=== PATIENT | male | born 1985 | race African-American/Black ===

== ENCOUNTER 2016-09-13 11:41 | Emergency (ER) | payer MEDICARE, MEDICAID ==
[~2016-09-13] VITALS: Ht 177.8 cm; Wt 68.0 kg
[2016-09-13 11:52] VITALS: BP 118/82
== END 2016-09-13 12:57 | disposition home or self-care (01) ==
LOC: ER 12:01
DX: Z00.8 Encounter for other general examination (principal); F16.10 Hallucinogen abuse, uncomplicated; F31.9 Bipolar disorder, unspecified; F17.200 Nicotine dependence, unspecified, uncomplicated; Z90.89 Acquired absence of other organs
CPT/HCPCS: 99281

== ENCOUNTER 2017-02-15 19:48 | Emergency (ER) | payer MEDICARE, MEDICAID ==
[~2017-02-15] VITALS: Ht 177.8 cm; Wt 73.0 kg
[2017-02-15 23:13] LABS: BASOPHILS % 0.8 % (0.0-2.0); EOSINOPHILS % 0.9 % (0.0-5.0); HEMATOCRIT. 39.7 % (42.0-52.0); HEMOGLOBIN. 13.7 g/dL (14.0-18.0); MEAN CORPUSCULAR VOLUME 92.5 fL (80.0-94.0); MEAN PLATELET VOLUME 8.9 fl (7.4-10.4); MONOCYTES % 11.6 % (2.0-8.0); NEUTROPHILS % 62.7 % (40.0-76.0); PLATELET 293 x1000/uL (130-400); RED CELL DISTRIBUTION WIDTH 13.1 % (11.6-14.6)
[2017-02-15 23:19] LABS: CHLORIDE 106 mEq/L (98-107)
[2017-02-15 23:23] LABS: CARBON DIOXIDE 33 mEq/L (21-32); ETHANOL BLOOD < 10 mg/dL
[2017-02-15 23:34] LABS: CLARITY URINE CLEAR (CLEAR); COLOR URINE YELLOW (YELLOW); KETONES URINE NEGATIVE (NEGATIVE); LEUKOCYTE ESTERASE URINE NEGATIVE (NEGATIVE); NITRITE URINE NEGATIVE (NEGATIVE); OCCULT BLOOD URINE NEGATIVE (NEGATIVE); PH URINE >=9.0 (4.5-8.0); PROTEIN URINE TRACE (NEGATIVE); SPECIFIC GRAVITY URINE 1.029 (1.005-1.030)
[2017-02-16] LABS: *AMPHETAMINES SCREEN URINE NEGATIVE (NEGATIVE); *BARBITURATES SCREEN URINE NEGATIVE (NEGATIVE); *BENZODIAZEPINES SCREEN URINE NEGATIVE (NEGATIVE); *COCAINE SCREEN URINE NEGATIVE (NEGATIVE); CANNABINOID URINE SCREEN NEGATIVE (NEGATIVE); METHADONE URINE SCREEN NEGATIVE (NEGATIVE); OPIATES URINE SCREEN NEGATIVE (NEGATIVE); PHENCYCLIDINE URINE SCREEN NEGATIVE (NEGATIVE)
[2017-02-16 16:00] VITALS: BP 120/79
== END 2017-02-16 16:37 | disposition home or self-care (01) ==
LOC: ER 20:37
DX: Z00.8 Encounter for other general examination (principal); F31.9 Bipolar disorder, unspecified; F19.10 Other psychoactive substance abuse, uncomplicated; Z59.0 Homelessness; Z90.89 Acquired absence of other organs
CPT/HCPCS: 36415; 80048; 80305; 81001; 82962; 85025; 99284; G0482

== ENCOUNTER 2017-02-18 18:11 | Emergency (ER) | payer MEDICARE, MEDICAID ==
[~2017-02-18] VITALS: Ht 177.8 cm; Wt 80.0 kg
[2017-02-19 02:57] LABS: BASOPHILS % 0.6 % (0.0-2.0); EOSINOPHILS % 1.5 % (0.0-5.0); HEMATOCRIT. 40.3 % (42.0-52.0); HEMOGLOBIN. 14.1 g/dL (14.0-18.0); LYMPHOCYTES % 27.6 % (20.0-50.0); MEAN CORPUSCULAR HEMOGLOBIN 32.2 pg (28.0-32.0); MEAN PLATELET VOLUME 8.9 fl (7.4-10.4); MONOCYTES % 7.9 % (2.0-8.0); NEUTROPHILS % 62.4 % (40.0-76.0); PLATELET 259 x1000/uL (130-400); RED BLOOD CELL COUNT 4.38 mill/uL (4.7-6.1)
[2017-02-19 03:13] LABS: CARBON DIOXIDE 28 mEq/L (21-32); CHLORIDE 105 mEq/L (98-107); ETHANOL BLOOD < 10 mg/dL
[2017-02-19 03:28] LABS: *AMPHETAMINES SCREEN URINE NEGATIVE (NEGATIVE); *BARBITURATES SCREEN URINE NEGATIVE (NEGATIVE); *BENZODIAZEPINES SCREEN URINE NEGATIVE (NEGATIVE); *COCAINE SCREEN URINE NEGATIVE (NEGATIVE); CANNABINOID URINE SCREEN PRESUMTIVE POSITIVE (NEGATIVE); METHADONE URINE SCREEN NEGATIVE (NEGATIVE); OPIATES URINE SCREEN NEGATIVE (NEGATIVE); PHENCYCLIDINE URINE SCREEN NEGATIVE (NEGATIVE)
[2017-02-19 04:45] VITALS: BP 114/69
== END 2017-02-19 05:45 | disposition home or self-care (01) ==
LOC: ER 18:22
DX: Z76.5 Malingerer [conscious simulation] (principal); R53.83 Other fatigue; F12.90 Cannabis use, unspecified, uncomplicated; F16.10 Hallucinogen abuse, uncomplicated; F31.9 Bipolar disorder, unspecified
CPT/HCPCS: 36415; 70450; 80048; 80305; 80307; 80329; 82962; 85025; 99285; G0482

== ENCOUNTER 2019-07-31 03:40 | Emergency (ER) | payer MEDICARE, OTHER ==
[~2019-07-31] VITALS: Ht 175.3 cm; Wt 71.1 kg
[2019-07-31 09:00] VITALS: BP 128/83
== END 2019-07-31 09:20 | disposition home or self-care (01) ==
LOC: ER 03:40
DX: R44.0 Auditory hallucinations (principal); F16.10 Hallucinogen abuse, uncomplicated; Z79.899 Other long term (current) drug therapy; Z59.0 Homelessness
CPT/HCPCS: 99281

== ENCOUNTER 2019-10-03 11:35 | Emergency (ER) | payer MEDICARE, MEDICAID, OTHER ==
[~2019-10-03] VITALS: Ht 180.3 cm; Wt 84.0 kg
[2019-10-03] MEDS ORDERED: LORAZEPAM 2MG/ML CPJ IV STA (12:28)
[2019-10-03] MEDS ORDERED: SODIUM CHLORIDE 0.9% 1,000 ML IV ONE (12:28)
[2019-10-03 12:55] LABS: BASOPHILS % 0.9 % (0.0-2.0); EOSINOPHILS % 0.7 % (0.0-5.0); HEMATOCRIT. 35.7 % (42.0-52.0); HEMOGLOBIN. 12.5 g/dL (14.0-18.0); LYMPHOCYTES % 27.1 % (20.0-50.0); MEAN CORPUSCULAR HEMOGLOBIN 31.7 pg (28.0-32.0); MEAN CORPUSCULAR VOLUME 90.7 fL (80.0-94.0); MEAN PLATELET VOLUME 8.3 fl (7.4-10.4); MONOCYTES % 12.3 % (2.0-8.0); PLATELET 267 x1000/uL (130-400); RED BLOOD CELL COUNT 3.93 mill/uL (4.7-6.1); RED CELL DISTRIBUTION WIDTH 12.8 % (11.6-14.6)
[2019-10-03 13:03] LABS: CHLORIDE 111 mEq/L (98-107)
[2019-10-03 13:08] LABS: ETHANOL BLOOD < 10 mg/dL
[2019-10-03 15:50] LABS: CLARITY URINE CLEAR (CLEAR); COLOR URINE YELLOW (YELLOW); KETONES URINE TRACE (NEGATIVE); LEUKOCYTE ESTERASE URINE NEGATIVE (NEGATIVE); NITRITE URINE NEGATIVE (NEGATIVE); OCCULT BLOOD URINE NEGATIVE (NEGATIVE); PH URINE 6.5 (4.5-8.0); PROTEIN URINE NEGATIVE (NEGATIVE); SPECIFIC GRAVITY URINE 1.029 (1.005-1.030)
[2019-10-03 16:03] LABS: *AMPHETAMINES SCREEN URINE PRESUMTIVE POSITIVE (NEGATIVE); *BARBITURATES SCREEN URINE NEGATIVE (NEGATIVE); *BENZODIAZEPINES SCREEN URINE NEGATIVE (NEGATIVE)
[2019-10-03 16:04] LABS: *COCAINE SCREEN URINE PRESUMTIVE POSITIVE (NEGATIVE); CANNABINOID URINE SCREEN NEGATIVE (NEGATIVE); METHADONE URINE SCREEN NEGATIVE (NEGATIVE); OPIATES URINE SCREEN NEGATIVE (NEGATIVE); PHENCYCLIDINE URINE SCREEN NEGATIVE (NEGATIVE)
[2019-10-04] MEDS ORDERED: OLANZAPINE 10 MG/VIAL IM ONE (00:30)
[2019-10-05 08:43] VITALS: BP 120/70
== END 2019-10-05 09:00 | disposition home or self-care (01) ==
LOC: ER 11:46
DX: F19.10 Other psychoactive substance abuse, uncomplicated (principal); Z78.1 Physical restraint status
CPT/HCPCS: 36415; 70450; 80053; 80305; 80307; 80320; 80329; 81003; 85025; 93005; 96372; 99285; J3490; J7030; G0480

== ENCOUNTER 2019-12-06 10:59 | Emergency (ER) | payer MEDICARE, MEDICAID, OTHER ==
[~2019-12-06] VITALS: Ht 185.4 cm; Wt 82.0 kg
[2019-12-06] MEDS ORDERED: LORAZEPAM 2MG/ML CPJ IV STA (11:20)
[2019-12-06] MEDS ORDERED: SODIUM CHLORIDE 0.9% 1,000 ML IV ONE (11:20)
[2019-12-06 11:43] LABS: BASOPHILS % 0.7 % (0.0-2.0); EOSINOPHILS % 0.1 % (0.0-5.0); HEMATOCRIT. 45.2 % (42.0-52.0); HEMOGLOBIN. 15.3 g/dL (14.0-18.0); LYMPHOCYTES % 14.3 % (20.0-50.0); MEAN CORPUSCULAR HEMOGLOBIN 31.4 pg (28.0-32.0); MEAN CORPUSCULAR VOLUME 92.3 fL (80.0-94.0); MEAN PLATELET VOLUME 9.1 fl (7.4-10.4); MONOCYTES % 12.8 % (2.0-8.0); NEUTROPHILS % 72.1 % (40.0-76.0); PLATELET 243 x1000/uL (130-400); RED BLOOD CELL COUNT 4.89 mill/uL (4.7-6.1); RED CELL DISTRIBUTION WIDTH 13.5 % (11.6-14.6)
[2019-12-06 11:50] LABS: CHLORIDE 104 mEq/L (98-107)
[2019-12-06 11:55] LABS: ETHANOL BLOOD < 10 mg/dL
[2019-12-06 12:09] LABS: *AMPHETAMINES SCREEN URINE PRESUMTIVE POSITIVE (NEGATIVE); *BARBITURATES SCREEN URINE NEGATIVE (NEGATIVE); *BENZODIAZEPINES SCREEN URINE NEGATIVE (NEGATIVE); *COCAINE SCREEN URINE NEGATIVE (NEGATIVE); METHADONE URINE SCREEN NEGATIVE (NEGATIVE)
[2019-12-06 12:10] LABS: CANNABINOID URINE SCREEN NEGATIVE (NEGATIVE); OPIATES URINE SCREEN NEGATIVE (NEGATIVE); PHENCYCLIDINE URINE SCREEN NEGATIVE (NEGATIVE)
[2019-12-06] MEDS ORDERED: POTASSIUM CHLORIDE 20MEQ TABLET SR PO NR (12:15)
[2019-12-06 20:44] VITALS: BP 129/79
== END 2019-12-06 20:45 | disposition home or self-care (01) ==
LOC: ER 11:11
DX: R41.82 Altered mental status, unspecified (principal)
CPT/HCPCS: 36415; 80053; 80305; 80320; 85025; 96361; 96374; 99285; J2060; J7030; G0480

== ENCOUNTER 2019-12-07 11:06 | Emergency (ER) | payer MEDICARE, MEDICAID ==
[~2019-12-07] VITALS: Ht 172.7 cm; Wt 82.0 kg
[2019-12-07] MEDS ORDERED: LORAZEPAM 2MG/ML CPJ IV STA (11:26)
[2019-12-07] MEDS ORDERED: SODIUM CHLORIDE 0.9% 1,000 ML IV ONE (11:26)
[2019-12-07 12:01] LABS: BASOPHILS % 0.9 % (0.0-2.0); EOSINOPHILS % 0.4 % (0.0-5.0); HEMOGLOBIN. 15.1 g/dL (14.0-18.0); LYMPHOCYTES % 24.1 % (20.0-50.0); MEAN CORPUSCULAR HEMOGLOBIN 32.4 pg (28.0-32.0); MEAN CORPUSCULAR VOLUME 92.7 fL (80.0-94.0); MEAN PLATELET VOLUME 8.8 fl (7.4-10.4); MONOCYTES % 12.2 % (2.0-8.0); NEUTROPHILS % 62.4 % (40.0-76.0); PLATELET 235 x1000/uL (130-400); RED BLOOD CELL COUNT 4.64 mill/uL (4.7-6.1); RED CELL DISTRIBUTION WIDTH 13.1 % (11.6-14.6)
[2019-12-07 13:03] LABS: CHLORIDE 109 mEq/L (98-107)
[2019-12-07 13:09] LABS: ETHANOL BLOOD < 10 mg/dL
[2019-12-07 13:20] LABS: CREATINE KINASE 353 IU/L (39-308)
[2019-12-07 16:17] LABS: CLARITY URINE CLEAR (CLEAR); COLOR URINE YELLOW (YELLOW); KETONES URINE 1+ (NEGATIVE); LEUKOCYTE ESTERASE URINE NEGATIVE (NEGATIVE); NITRITE URINE NEGATIVE (NEGATIVE); OCCULT BLOOD URINE NEGATIVE (NEGATIVE); PROTEIN URINE TRACE (NEGATIVE); SPECIFIC GRAVITY URINE 1.033 (1.005-1.030)
[2019-12-07 16:31] LABS: CANNABINOID URINE SCREEN NEGATIVE (NEGATIVE); METHADONE URINE SCREEN NEGATIVE (NEGATIVE); OPIATES URINE SCREEN NEGATIVE (NEGATIVE); PHENCYCLIDINE URINE SCREEN NEGATIVE (NEGATIVE)
[2019-12-07 16:32] LABS: *AMPHETAMINES SCREEN URINE PRESUMTIVE POSITIVE (NEGATIVE); *BARBITURATES SCREEN URINE NEGATIVE (NEGATIVE); *BENZODIAZEPINES SCREEN URINE NEGATIVE (NEGATIVE); *COCAINE SCREEN URINE NEGATIVE (NEGATIVE)
[2019-12-07] MEDS ORDERED: HALOPERIDOL LACTATE 5MG/ML VIAL IM ONE (20:00)
[2019-12-07] MEDS ORDERED: LORAZEPAM 2MG/ML CPJ IV ONE (20:00)
[2019-12-08 03:28] VITALS: BP 125/63
== END 2019-12-08 04:53 | disposition home or self-care (01) ==
LOC: EDUNIT# 11:06 → ER 11:06 → EDBD 11:06 → ER 12-08 04:53
DX: R41.82 Altered mental status, unspecified (principal); R00.0 Tachycardia, unspecified; F15.10 Other stimulant abuse, uncomplicated
CPT/HCPCS: 36415; 70450; 71045; 80053; 80305; 80307; 80320; 80329; 81003; 82550; 83880; 84484; 85025; 93005; 96361; 96372; 96374; 96376; 99285; J1630; J2060; J7030; G0480

== ENCOUNTER 2020-08-12 02:33 | Emergency (ER) | payer MEDICARE, MEDICAID ==
[~2020-08-12] VITALS: Ht 177.8 cm; Wt 67.9 kg
[2020-08-12 03:57] LABS: EOSINOPHILS % 2.2 % (0.0-5.0); HEMATOCRIT. 39.6 % (42.0-52.0); HEMOGLOBIN. 13.8 g/dL (14.0-18.0); LYMPHOCYTES % 33.1 % (20.0-50.0); MEAN CORPUSCULAR HEMOGLOBIN 31.7 pg (28.0-32.0); MEAN CORPUSCULAR VOLUME 90.6 fL (80.0-94.0); MEAN PLATELET VOLUME 8.8 fl (7.4-10.4); MONOCYTES % 8.8 % (2.0-8.0); NEUTROPHILS % 54.9 % (40.0-76.0); PLATELET 213 x1000/uL (130-400); RED BLOOD CELL COUNT 4.36 mill/uL (4.7-6.1); RED CELL DISTRIBUTION WIDTH 12.3 % (11.6-14.6)
[2020-08-12 05:10] LABS: CHLORIDE 107 mEq/L (98-107)
[2020-08-12 05:14] LABS: ETHANOL BLOOD < 10 mg/dL
[2020-08-12 06:24] LABS: CLARITY URINE CLEAR (CLEAR); COLOR URINE YELLOW (YELLOW); KETONES URINE NEGATIVE (NEGATIVE); LEUKOCYTE ESTERASE URINE NEGATIVE (NEGATIVE); NITRITE URINE NEGATIVE (NEGATIVE); OCCULT BLOOD URINE NEGATIVE (NEGATIVE); PROTEIN URINE NEGATIVE (NEGATIVE); SPECIFIC GRAVITY URINE 1.024 (1.005-1.030)
[2020-08-12 06:42] LABS: *AMPHETAMINES SCREEN URINE PRESUMTIVE POSITIVE (NEGATIVE)
[2020-08-12 06:43] LABS: *BENZODIAZEPINES SCREEN URINE NEGATIVE (NEGATIVE); *COCAINE SCREEN URINE NEGATIVE (NEGATIVE); METHADONE URINE SCREEN NEGATIVE (NEGATIVE); OPIATES URINE SCREEN NEGATIVE (NEGATIVE); PHENCYCLIDINE URINE SCREEN NEGATIVE (NEGATIVE)
[2020-08-12 06:45] LABS: *BARBITURATES SCREEN URINE NEGATIVE (NEGATIVE); CANNABINOID URINE SCREEN NEGATIVE (NEGATIVE)
[2020-08-12 15:49] VITALS: BP 110/67
== END 2020-08-12 15:50 | disposition home or self-care (01) ==
LOC: ER 02:33
DX: F15.10 Other stimulant abuse, uncomplicated (principal); F22 Delusional disorders; Z20.822 Contact with and (suspected) exposure to COVID-19; Z86.59 Personal history of other mental and behavioral disorders
CPT/HCPCS: 36415; 80053; 80305; 80320; 81003; 85025; 87426; 99285; G0480

== ENCOUNTER 2020-10-05 04:15 | Emergency (ER) | payer MEDICARE, MEDICAID ==
[~2020-10-05] VITALS: Ht 175.3 cm; Wt 72.0 kg
[2020-10-05 04:30] VITALS: BP 139/100
[2020-10-05] MEDS ORDERED: ACETAMINOPHEN 325MG TABLET PO ONE (05:00)
== END 2020-10-05 05:37 | disposition home or self-care (01) ==
LOC: ER 04:15
DX: R51.9 Headache, unspecified (principal); Z59.0 Homelessness; F20.9 Schizophrenia, unspecified; F31.9 Bipolar disorder, unspecified
CPT/HCPCS: 99281

== ENCOUNTER 2020-10-23 06:00 | Emergency (ER) | payer MEDICARE, MEDICAID ==
[~2020-10-23] VITALS: Ht 180.3 cm; Wt 80.0 kg
[2020-10-23] MEDS ORDERED: LORAZEPAM 2MG/ML CPJ IM ONE (08:30)
[2020-10-23] MEDS ORDERED: OLANZAPINE 10 MG/VIAL IM ONE (08:30)
[2020-10-23 08:45] LABS: BASOPHILS % 0.8 % (0.0-2.0); HEMOGLOBIN. 12.4 g/dL (14.0-18.0); LYMPHOCYTES % 20.6 % (20.0-50.0); MEAN CORPUSCULAR HEMOGLOBIN 31.5 pg (28.0-32.0); MEAN CORPUSCULAR VOLUME 93.7 fL (80.0-94.0); MEAN PLATELET VOLUME 9.3 fl (7.4-10.4); MONOCYTES % 8.6 % (2.0-8.0); PLATELET 222 x1000/uL (130-400); RED BLOOD CELL COUNT 3.95 mill/uL (4.7-6.1)
[2020-10-23 08:49] LABS: CHLORIDE 112 mEq/L (98-107)
[2020-10-23 08:53] LABS: ETHANOL BLOOD < 10 mg/dL
[2020-10-23 10:54] LABS: CLARITY URINE CLEAR (CLEAR); COLOR URINE YELLOW (YELLOW); KETONES URINE NEGATIVE (NEGATIVE); LEUKOCYTE ESTERASE URINE NEGATIVE (NEGATIVE); NITRITE URINE NEGATIVE (NEGATIVE); OCCULT BLOOD URINE NEGATIVE (NEGATIVE); PH URINE 5.5 (4.5-8.0); PROTEIN URINE NEGATIVE (NEGATIVE); SPECIFIC GRAVITY URINE 1.029 (1.005-1.030)
[2020-10-23 11:11] LABS: *AMPHETAMINES SCREEN URINE NEGATIVE (NEGATIVE)
[2020-10-23 11:12] LABS: *BARBITURATES SCREEN URINE NEGATIVE (NEGATIVE); *BENZODIAZEPINES SCREEN URINE NEGATIVE (NEGATIVE); *COCAINE SCREEN URINE PRESUMTIVE POSITIVE (NEGATIVE); METHADONE URINE SCREEN NEGATIVE (NEGATIVE); OPIATES URINE SCREEN NEGATIVE (NEGATIVE); PHENCYCLIDINE URINE SCREEN PRESUMTIVE POSITIVE (NEGATIVE)
[2020-10-23 11:13] LABS: CANNABINOID URINE SCREEN PRESUMTIVE POSITIVE (NEGATIVE)
[2020-10-24] MEDS ORDERED: OLANZAPINE 10MG TABLET PO SCH (03:30)
[2020-10-24] MEDS ORDERED: ZIPRASIDONE MESYLATE 20MG/VIAL IM ONE (04:00)
[2020-10-24 06:16] VITALS: BP 120/76
== END 2020-10-24 06:19 | disposition home or self-care (01) ==
LOC: ER 06:00
DX: F23 Brief psychotic disorder (principal); R45.850 Homicidal ideations; F14.10 Cocaine abuse, uncomplicated; F12.10 Cannabis abuse, uncomplicated; F16.10 Hallucinogen abuse, uncomplicated; F15.10 Other stimulant abuse, uncomplicated; F31.9 Bipolar disorder, unspecified; Z20.822 Contact with and (suspected) exposure to COVID-19
CPT/HCPCS: 36415; 80053; 80305; 80307; 80320; 80329; 81003; 85025; 96372; 99285; C9803; J2060; J3486; J3490; U0003; U0005; G0480

== ENCOUNTER 2020-11-01 09:14 | Emergency (ER) | payer MEDICARE, MEDICAID ==
[~2020-11-01] VITALS: Ht 180.3 cm; Wt 90.0 kg
[2020-11-01 09:25] VITALS: BP 115/67
== END 2020-11-01 12:25 | disposition left against medical advice (07) ==
LOC: ER 09:28
DX: G89.29 Other chronic pain (principal); M25.552 Pain in left hip; F15.10 Other stimulant abuse, uncomplicated; Z86.59 Personal history of other mental and behavioral disorders
CPT/HCPCS: 99283

== ENCOUNTER 2020-11-02 16:43 | Emergency (ER) | payer MEDICARE, MEDICAID ==
[~2020-11-02] VITALS: Ht 177.8 cm; Wt 86.0 kg
[2020-11-02] MEDS ORDERED: KETOROLAC 60MG/2ML VIAL IM ONE (18:45)
[2020-11-02 20:49] VITALS: BP 120/65
== END 2020-11-02 20:50 | disposition home or self-care (01) ==
LOC: ER 17:20
DX: M54.5 Low back pain (principal); M25.551 Pain in right hip; G89.29 Other chronic pain; F31.9 Bipolar disorder, unspecified; F20.9 Schizophrenia, unspecified; Z98.890 Other specified postprocedural states
CPT/HCPCS: 96372; 99283; J1885

== ENCOUNTER 2020-11-08 06:19 | Emergency (ER) | payer MEDICARE, MEDICAID ==
[~2020-11-08] VITALS: Ht 177.8 cm; Wt 91.0 kg
[2020-11-08] MEDS ORDERED: SODIUM CHLORIDE 0.9% 1,000 ML IV ONE (07:00)
[2020-11-08 07:35] LABS: CHLORIDE 105 mEq/L (98-107)
[2020-11-08 07:38] LABS: BASOPHILS % 0.4 % (0.0-2.0); EOSINOPHILS % 0.1 % (0.0-5.0); HEMATOCRIT. 43.3 % (42.0-52.0); HEMOGLOBIN. 14.7 g/dL (14.0-18.0); LYMPHOCYTES % 10.3 % (20.0-50.0); MEAN CORPUSCULAR HEMOGLOBIN 31.7 pg (28.0-32.0); MEAN CORPUSCULAR VOLUME 93.5 fL (80.0-94.0); MEAN PLATELET VOLUME 9.3 fl (7.4-10.4); MONOCYTES % 8.7 % (2.0-8.0); NEUTROPHILS % 80.5 % (40.0-76.0); PLATELET 234 x1000/uL (130-400); RED BLOOD CELL COUNT 4.63 mill/uL (4.7-6.1); RED CELL DISTRIBUTION WIDTH 13.7 % (11.6-14.6)
[2020-11-08 07:40] LABS: CLARITY URINE CLEAR (CLEAR); COLOR URINE YELLOW (YELLOW); ETHANOL BLOOD < 10 mg/dL; KETONES URINE TRACE (NEGATIVE); LEUKOCYTE ESTERASE URINE NEGATIVE (NEGATIVE); NITRITE URINE NEGATIVE (NEGATIVE); OCCULT BLOOD URINE NEGATIVE (NEGATIVE); PH URINE 5.5 (4.5-8.0); PROTEIN URINE NEGATIVE (NEGATIVE); SPECIFIC GRAVITY URINE 1.036 (1.005-1.030)
[2020-11-08 07:48] LABS: *AMPHETAMINES SCREEN URINE PRESUMTIVE POSITIVE (NEGATIVE); *BARBITURATES SCREEN URINE NEGATIVE (NEGATIVE); *BENZODIAZEPINES SCREEN URINE NEGATIVE (NEGATIVE); *COCAINE SCREEN URINE PRESUMTIVE POSITIVE (NEGATIVE); METHADONE URINE SCREEN NEGATIVE (NEGATIVE); OPIATES URINE SCREEN NEGATIVE (NEGATIVE); PHENCYCLIDINE URINE SCREEN NEGATIVE (NEGATIVE)
[2020-11-08 07:50] LABS: CANNABINOID URINE SCREEN NEGATIVE (NEGATIVE)
[2020-11-08 13:45] VITALS: BP 122/78
== END 2020-11-08 13:56 | disposition home or self-care (01) ==
LOC: ER 06:49
DX: F15.10 Other stimulant abuse, uncomplicated (principal); F14.129 Cocaine abuse with intoxication, unspecified; F19.10 Other psychoactive substance abuse, uncomplicated; R51.9 Headache, unspecified; Z20.822 Contact with and (suspected) exposure to COVID-19; Z86.59 Personal history of other mental and behavioral disorders
CPT/HCPCS: 70450; 71045; 80053; 80305; 80307; 80320; 81003; 82140; 85025; 93005; 99285; J7030; U0003; G0480

== ENCOUNTER 2020-11-12 20:16 | Emergency (ER) | payer MEDICARE, MEDICAID ==
[~2020-11-12] VITALS: Ht 177.8 cm; Wt 82.0 kg
[2020-11-12 22:35] VITALS: BP 137/85
[2020-11-12] MEDS ORDERED: NALO4SPR BOTHNSTRLS (22:51)
== END 2020-11-12 23:27 | disposition home or self-care (01) ==
LOC: ER 20:16
DX: T40.5X1A Poisoning by cocaine, accidental (unintentional), initial encounter (principal); Y92.9 Unspecified place or not applicable; F31.9 Bipolar disorder, unspecified; F20.9 Schizophrenia, unspecified
CPT/HCPCS: 99283

== ENCOUNTER 2020-11-22 15:47 | Emergency (ER) | payer MEDICARE, MEDICAID ==
[~2020-11-22] VITALS: Ht 182.9 cm; Wt 77.0 kg
[~2020-11-22 15:47] MED LIST: NALO4SPR BOTHNSTRLS
[2020-11-22 17:07] LABS: BASOPHILS % 0.7 % (0.0-2.0); EOSINOPHILS % 0.4 % (0.0-5.0); HEMATOCRIT. 40.9 % (42.0-52.0); HEMOGLOBIN. 14.6 g/dL (14.0-18.0); LYMPHOCYTES % 15.5 % (20.0-50.0); MEAN CORPUSCULAR HEMOGLOBIN 32.7 pg (28.0-32.0); MEAN PLATELET VOLUME 8.6 fl (7.4-10.4); MONOCYTES % 5.9 % (2.0-8.0); NEUTROPHILS % 77.5 % (40.0-76.0); PLATELET 287 x1000/uL (130-400); RED BLOOD CELL COUNT 4.45 mill/uL (4.7-6.1); RED CELL DISTRIBUTION WIDTH 13.5 % (11.6-14.6)
[2020-11-22 17:14] LABS: CHLORIDE 110 mEq/L (98-107)
[2020-11-22 17:19] LABS: ETHANOL BLOOD < 10 mg/dL
[2020-11-22 21:35] LABS: CLARITY URINE CLEAR (CLEAR); COLOR URINE YELLOW (YELLOW); KETONES URINE TRACE (NEGATIVE); LEUKOCYTE ESTERASE URINE NEGATIVE (NEGATIVE); NITRITE URINE NEGATIVE (NEGATIVE); OCCULT BLOOD URINE NEGATIVE (NEGATIVE); PH URINE 5.5 (4.5-8.0); PROTEIN URINE NEGATIVE (NEGATIVE); SPECIFIC GRAVITY URINE 1.025 (1.005-1.030)
[2020-11-22 21:46] LABS: *AMPHETAMINES SCREEN URINE PRESUMTIVE POSITIVE (NEGATIVE); *BARBITURATES SCREEN URINE NEGATIVE (NEGATIVE); *BENZODIAZEPINES SCREEN URINE NEGATIVE (NEGATIVE); *COCAINE SCREEN URINE PRESUMTIVE POSITIVE (NEGATIVE); METHADONE URINE SCREEN NEGATIVE (NEGATIVE); OPIATES URINE SCREEN NEGATIVE (NEGATIVE); PHENCYCLIDINE URINE SCREEN NEGATIVE (NEGATIVE)
[2020-11-22 21:47] LABS: CANNABINOID URINE SCREEN NEGATIVE (NEGATIVE)
[2020-11-24 11:38] VITALS: BP 120/77
== END 2020-11-24 11:50 ==
LOC: ER 15:47
DX: F20.9 Schizophrenia, unspecified (principal); F15.129 Other stimulant abuse with intoxication, unspecified; Z20.822 Contact with and (suspected) exposure to COVID-19
CPT/HCPCS: 36415; 80053; 80305; 80307; 80320; 80329; 81003; 85025; 99285; C9803; U0003; U0005; G0480

== ENCOUNTER 2021-01-20 22:08 | Emergency (ER) | payer MEDICARE, MEDICAID ==
[~2021-01-20] VITALS: Ht 175.3 cm; Wt 74.0 kg
[~2021-01-20 22:08] MED LIST changes: +DIVA250T4 MT; +LEVO750T46 MT; +OLAN5TAB3 PO
[2021-01-20 23:29] VITALS: BP 126/92
== END 2021-01-21 01:07 | disposition left against medical advice (07) ==
LOC: ER 22:08
DX: Z53.21 Procedure and treatment not carried out due to patient leaving prior to being seen by health care provider (principal); F31.9 Bipolar disorder, unspecified; F20.9 Schizophrenia, unspecified; Z98.890 Other specified postprocedural states